=== PATIENT | female | born 2000 ===

== ENCOUNTER 2020-06-21 12:52 | Emergency (ER) | payer SELFPAY ==
[2020-06-21 13:01] VITALS: BP 146/90
[2020-06-21] MEDS ORDERED: ACETAMINOPHEN 500 MG TAB PO ONE (13:04)
--- NOTE | 2020-06-21 13:04 | Emergency Department Report ---
ED Female HPI - General Chief complaint: Abdominal Pain Stated complaint: ABD PAIN/CRAMPS Time Seen by Provider: 06/21/20 12:57 Source: patient Mode of arrival: Ambulatory Limitations: No Limitations - History of Present Illness Initial comments: 19-year-old female with no significant past history presents to the ER today complaint of low abdominal/pelvic pain. She describes it as a cramping pain. She states that it started yesterday. It has been constant in nature. She reports associated low back pain. She denies any abnormal vaginal bleeding or discharge. She states that she had a normal menstrual cycle May 08 but in May she had spotting for 2 days. She did take a test in May but that was negative. She denies any nausea or vomiting since the pain started yesterday. She denies any history of . She denies any history of abdominal surgeries. MD Complaint: pelvic pain -: Gradual (yesterday) - Related Data Previous Rx's Medication Instructions Recorded Last Taken Type cephALEXin [Keflex] 500 mg PO Q8HR #21 cap 06/21/20 Unknown Rx Allergies Allergy/AdvReac Type Severity Reaction Status Date / Time No Known Allergies Allergy Verified 06/21/20 12:56 ED Review of Systems ROS: Stated complaint: ABD PAIN/CRAMPS Other details as noted in HPI Comment: All other systems reviewed and negative Constitutional: denies: chills, fever Respiratory: denies: cough, shortness of breath, wheezing Cardiovascular: denies: chest pain, palpitations Gastrointestinal: abdominal pain. denies: nausea, vomiting Genitourinary: denies: urgency, dysuria, frequency, hematuria, discharge, abnormal menses, dyspareunia Musculoskeletal: back pain Skin: denies: rash, lesions Neurological: denies: headache, weakness, paresthesias Psychiatric: denies: anxiety, depression ED Past Medical Hx - Past Medical History Previous Medical History?: No - Surgical History Past Surgical History?: No - Social History Smoking Status: Never Smoker Substance Use Type: None - Medications Home Medications: Home Medications Medication Instructions Recorded Confirmed Last Taken Type cephALEXin [Keflex] 500 mg PO Q8HR #21 cap 06/21/20 Unknown Rx ED Physical Exam - General Limitations: No Limitations General appearance: alert, in no apparent distress - Head Head exam: Present: atraumatic, normocephalic, normal inspection - Eye Eye exam: Present: normal appearance, PERRL, EOMI Pupils: Present: normal accommodation - ENT ENT exam: Present: normal exam, mucous membranes moist - Respiratory Respiratory exam: Present: normal lung sounds bilaterally. Absent: respiratory distress - Cardiovascular Cardiovascular Exam: Present: regular rate, normal rhythm, normal heart sounds - GI/Abdominal GI/Abdominal exam: Present: soft. Absent: distended, tenderness, guarding - Neurological Exam Neurological exam: Present: alert, oriented X3, CN II-XII intact, normal gait - Psychiatric Psychiatric exam: Present: normal affect, normal mood - Skin Skin exam: Present: intact ED Course Vital Signs 06/21/20 12:56 Temperature 98.1 F Pulse Rate 77 Respiratory 16 Rate Blood Pressure 146/90 [Right] O2 Sat by Pulse 100 Oximetry ED Medical Decision Making - Lab Data Result diagrams: 06/21/20 13:11 06/21/20 13:11 - Radiology Data Radiology results: report reviewed Patient: JOHANN PARMAR MR#: [id number] : 2000 Acct:[id number] Age/Sex: 19 / F ADM Date: 06/21/20 Loc: ED Attending Dr: Ordering Physician: LORE NEGRETE Date of Service: 06/21/20 Procedure(s): US OB <= 14 weeks fetus Accession Number(s): [id number] cc: LORE NEGRETE [facility] OB Ultrasound HISTORY: Low abd cramp/pelvic pain; +preg. TECHNIQUE: Grayscale and color imaging performed. COMPARISON: None FINDINGS: Transabdominal imaging was performed. Uterus measures 7.2 x 4.4 x 6.0 cm and contains a gestational sac with mean diameter of 12 mm. This corresponds with an EGA of 6 weeks and 0 days. Estimated delivery date is 02/14/2021. No pole or yolk sac identified. The right ovary appears unremarkable. The left ovary is not visualized. IMPRESSION: 1. Intrauterine gestational sac as outlined above with no pole identified. No acute abnormality. 2. Left ovary not visualized. Signer Name: Kirill Sanabria MD Signed: 06/21/2020 2:59 PM Workstation Name: [id number] Transcribed By: GRACIELA Dictated By: Kirill Sanabria MD Electronically Authenticated By: Kirill Sanabria MD Signed Date/Time: 06/21/201458 DD/ 56 TD/TT: - Medical Decision Making 19-year-old female with no significant past history presents to the ER today complaint of low abdominal/pelvic pain. She describes it as a cramping pain. She states that it started yesterday. It has been constant in nature. She reports associated low back pain. She denies any abnormal vaginal bleeding or discharge. She states that she had a normal menstrual cycle May 08 but in May she had spotting for 2 days. She did take a test in May but that was negative. She denies any nausea or vomiting since the pain started yesterday. She denies any history of . She denies any history of abdominal surgeries. 1550: Labs reviewed, BC and CMP unremarkable. Urinalysis suggest a UTI, urine culture [place] pending. [place] [address], ultrasound shows intrauterine gestational sac measuring 6 weeks and 0 days but no pole seen. Discussed lab and ultrasound results with patient. She is currently resting comfortably. She is not in any acute distress. She is not toxic or ill-appearing. She appears well-hydrated. She has a soft nontender abdomen. Her vital signs are stable. No further work-up, admission or emergent consult indicated at this time. Patient will be given referral to local [facility] for continued care. Patient expressed understanding of instructions and agree with plan. Patient was stable at time of discharge. Critical care attestation.: If time is entered above; I have spent that time in minutes in the direct care of this critically ill patient, excluding procedure time. ED Disposition Clinical Impression: Abdominal pain during , UTI (urinary tract infection) Disposition: - TO HOME OR SELFCARE Is pt being admited?: No Does the pt Need Aspirin: No Condition: Stable Instructions: Urinary Tract Infection, Adult, Abdominal Pain During , Abdominal Pain (ED) Additional Instructions: Take the keflex as prescribed. You can take tylenol as needed for pain. Drink lots of water. Follow up with OBGYN given on your d/c instructions. Return if symptoms worsen or changes. Prescriptions: cephALEXin [Keflex] 500 mg PO Q8HR #21 cap Referrals: [facility] [Provider Group] - 3-5 Days Time of Disposition: 15:48
[2020-06-21 13:35] LABS: Bacteria,Urine 1+ /HPF (Negative); Bilirubin,Urine NEG (Negative); Blood,Urine NEG (Negative); Color,Urine Yellow (Yellow); Mucus,Urine 1+ /HPF
[2020-06-21 13:45] LABS: Basophils % (Auto) 0.7 % (0.0-1.8); Eosinophils # (Auto) 0.1 K/mm3 (0.0-0.4); Eosinophils % (Auto) 1.4 % (0.0-4.3); Hemoglobin 13.2 gm/dl (10.1-14.3); Lymphocytes # (Auto) 1.6 K/mm3 (1.2-5.4); Lymphocytes % (Auto) 33.6 % (13.4-35.0); Mean Corpuscular HGB Conc 33 % (30-34); Mean Corpuscular Volume 81 fl (79-97); Monocytes # (Auto) 0.4 K/mm3 (0.0-0.8); Monocytes % (Auto) 8.9 % (0.0-7.3); Platelet Count 341 K/mm3 (140-440); Red Blood Count 4.92 M/mm3 (3.65-5.03); Red Cell Distribution Width 14.5 % (13.2-15.2)
[2020-06-21 14:09] LABS: Alanine Aminotransferase 25 units/L (7-56); Albumin 4.2 g/dL (3.9-5); Blood Urea Nitrogen 10 mg/dL (7-17); Hemolysis Index 1
[2020-06-21 14:11] LABS: BUN/Creatinine Ratio 14
--- NOTE | 2020-06-21 15:04 | Ultrasound Report ---
Limited OB Ultrasound HISTORY: Low abd cramp/pelvic pain; +preg. TECHNIQUE: Grayscale and color imaging performed. COMPARISON: None FINDINGS: Transabdominal imaging was performed. Uterus measures 7.2 x 4.4 x 6.0 cm and contains a gestational sac with mean diameter of 12 mm. This c orresponds with an EGA of 6 weeks and 0 days. Estimated delivery date is 02/14/2021. No pole or yolk sac identified. The right ovary appears unremarkable. The left ovary is not visualized. IMPRESSION: 1. Intrauterine gestational sac as outlined above with no pole identified. No acute abnormality . 2. Left ovary not visualized. Signer Name: Kirill Sanabria MD Signed: 06/21/2020 2:59 PM Workstation Name: [id number]
== END 2020-06-21 16:00 | disposition home or self-care (01) ==
LOC: ED 12:52
DX: O23.41 Unspecified infection of urinary tract in pregnancy, first trimester (principal); O26.891 Other specified pregnancy related conditions, first trimester; R10.30 Lower abdominal pain, unspecified; Z79.899 Other long term (current) drug therapy; Z3A.01 Less than 8 weeks gestation of pregnancy
CPT/HCPCS: 36415; 76801; 80053; 81001; 84702; 84703; 85025; 87086